=== PATIENT | female | born 1975 | race African-American/Black ===

== ENCOUNTER 2023-04-01 12:13 | Emergency (ER) | payer BC, OTHER ==
[~2023-04-01] VITALS: Ht 170.2 cm; Wt 145.4 kg
[2023-04-01 13:14] LABS: Basophils # (auto) 0 10 ^3/uL (0-0.2); Basophils % (auto) 0.6 % (0.0-2.0); Eosinophils # (auto) 0.1 10 ^3/uL (0-0.8); Eosinophils % (auto) 2.2 % (0.0-7.0); Hematocrit 39.3 % (36.0-46.0); Hemoglobin 12.8 g/dL (12.2-16.2); Lymphocytes # (auto) 2.1 10 ^3/uL (0.4-5.4); Lymphocytes % (auto) 31.8 % (10.0-50.0); Mean Corpuscular Hemoglobin 31.8 pg (28.0-32.0); Mean Corpuscular Hgb Conc. 32.7 g/dL (32.0-36.0); Mean Corpuscular Volume 97.3 fL (80.0-100.0); Monocytes # (auto) 0.4 10 ^3/uL (0-1.3); Monocytes % (auto) 6.3 % (0.0-12.0); Neutrophils # (auto) 3.8 10 ^3/uL (1.6-8.6); Neutrophils % (auto) 59.1 % (37.0-80.0); Nucleated Red Blood Cells % 0.3 %; Red Blood Cells 4.03 10^6/uL (4.0-5.20); Red Cell Distribution Width 12.8 % (11.8-14.3); White Blood Cell 6.5 10^3/uL (4.4-10.8)
[2023-04-01 13:32] LABS: Albumin 3.6 g/dL (3.4-5.0); Magnesium 2.1 mg/dL (1.6-2.6); Potassium 4.1 mmol/L (3.5-5.1)
[2023-04-01 13:37] LABS: BUN/Creatinine Ratio 9.4 (10.0-20.0); Bilirubin, Total 0.5 mg/dL (0.2-1.0)
[2023-04-01 15:19] LABS: Urine Bacteria NONE SEEN /hpf (None Seen); Urine Blood Negative /uL (Negative); Urine Specific Gravity 1.011 (1.001-1.035); Urine WBC 91 /hpf (0 - 5)
[2023-04-01 17:02] VITALS: BP 198/117
== END 2023-04-01 17:40 | disposition left against medical advice (07) ==
LOC: EDBD 12:13 → ER 12:13
DX: I24.9 Acute ischemic heart disease, unspecified (principal); I16.0 Hypertensive urgency; E11.9 Type 2 diabetes mellitus without complications; Z90.710 Acquired absence of both cervix and uterus; Z88.8 Allergy status to other drugs, medicaments and biological substances
CPT/HCPCS: 36415; 71045; 80053; 81001; 83735; 84484; 85025; 93005